=== PATIENT | male | born 1960 | race African-American/Black ===

== ENCOUNTER 2021-12-16 00:35 | Day surgery (SDC) | payer OTHER, SELFPAY ==
[2021-12-04 11:13] VITALS: BMI 26.7
[2021-12-16 06:43] VITALS: BP 131/79; PULSE 52; RESP 18; TEMP 37.1; O2SAT 100
[2021-12-16] MEDS: LACTATED RINGERS 1,000 ML 150 ML IV CONT (06:47)
--- NOTE | 2021-12-16 06:59 | WPDANESEPPF ---
Anes - Initial Pre Proc Eval Procedure: Operation Date: 12/16/21 08:00 Proposed Procedures p Screening Colonoscopy - Thomas Rosales MD Date/Time: 12/16/21 06:59 Surgeon: Thomas Rosales MD Pre Op Diagnosis: neoplasm screening Patient Data Age: 61 Gender: M Height: 1.7 m Weight: 78 kg Last Vital Signs Temp 37.1 C 12/16/21 06:43 Pulse 52 L 12/16/21 06:43 Resp 18 12/16/21 06:43 BP 131/79 12/16/21 06:43 Pulse Ox 100 12/16/21 06:43 Allergies Allergy/AdvReac Type Severity Reaction Status Date / Time No Known Allergies Allergy Verified 12/16/21 06:41 Home Medications Medication Instructions Recorded Confirmed Type No Home Medications 06/04/21 12/16/21 History Patient hx anesthesia problems: none Family hx anesthesia problems: none Results Review: All pre-operative results and documents have been reviewed as part of the pre-operative evaluation. [facility] Surgical History Surgical History (Updated 09/13/21 @ 09:34 by Xuan Cintron, CINDY) History of hernia repair as a child Family History Family History (Updated 09/13/21 @ 09:35 by Xuan Cintron, CINDY) Mother Hypertension Social History Social History Smoking status: Never smoker Second hand tobacco smoke exposure: No Alcohol intake: never Substance use: never Substance use type: does not use Living arrangements: with family Gender identity (if verbalized by the patient): Male Sexual Orientation (if Verbalized by the Patient): Straight or Heterosexual Spiritual care concerns: No Anes - Eval Final PreProcedure Day of Procedure 12/16/21 06:59 Patient weight: overweight Heart: regular rate and rhythm Lungs: clear to auscultation and normal air movement Airway: Mallampati scale class II Neurological: alert and oriented Last oral intake: >/= 8 hours ASA classification: I Emergent: no Anesthetic plan: proceed Anesthesia type and monitoring: general GIVS and standard monitoring Results Review: All pre-operative results and documents have been reviewed as part of the pre-operative evaluation. Informed Consent: The patient's anesthetic plan and its attendant risks and benefits were discussed with the patient/family/POA. Questions were solicited and answers provided to the satisfaction of the patient/family/POA.
--- NOTE | 2021-12-16 07:56 | PM.HPGS ---
History of Present Illness History of Present Illness Consent: Risks, benefits, and alternatives have been discussed and questions answered. Patient agrees to proceed with procedure. Chief complaint: neoplasm screening Narrative: Guanaco Austin is a 61 year old male here for screening colonoscopy, last one 12 years ago Review of Systems Constitutional: Constitutional: Denies headache(s) and Denies weakness Eyes: Eyes: Denies blurry vision ENT: Reports Normal hearing present, Denies headache(s) and Denies neck pain Cardiovascular: Cardiovascular: Denies chest pain and Denies dyspnea Respiratory: Respiratory: Denies dyspnea Gastrointestinal: Gastrointestinal: Reports no additional gastrointestinal complaints Genitourinary: Genitourinary: Denies dysuria Musculoskeletal: Musculoskeletal: Denies neck pain Integumentary/Breasts: Skin/Breast: Denies dry skin Neurologic: Reports Normal hearing present, Denies headache(s) and Denies weakness Psychiatric: Psychiatric: Denies anxiety Endocrine: Endocrine: Denies change in body appearance Hematologic/Lymphatic: Hematologic/Lymphatic: Denies easy bleeding Allergic/Immunologic: Allergic/Immunologic: Denies urticaria PMFSH Surgical History Surgical History (Updated 09/13/21 @ 09:34 by Xuan Cintron, CINDY) History of hernia repair as a child Family History Family History (Updated 09/13/21 @ 09:35 by Xuan Cintron, KAPILC) Mother Hypertension Social History Social History Smoking status: Never smoker Second hand tobacco smoke exposure: No Alcohol intake: never Substance use: never Substance use type: does not use Living arrangements: with family Gender identity (if verbalized by the patient): Male Sexual Orientation (if Verbalized by the Patient): Straight or Heterosexual Spiritual care concerns: No Meds Home Medications and Allergies Home Medications Medication Instructions Recorded Confirmed Type No Home Medications 06/04/21 12/16/21 History Allergies Allergy/AdvReac Type Severity Reaction Status Date / Time No Known Allergies Allergy Verified 12/16/21 06:41 Vital Signs Vital Signs - 24 hr 12/16/21 06:43 Temperature 98.7 F Pulse Rate 52 L Respiratory Rate 18 Blood Pressure 131/79 Pulse Oximetry 100 Exam Const: General: comfortable and no acute distress HENMT: General nose exam: Normal nares present Eyes: General: appearance normal, both eyes and all related structures Neck: Neck: no JVD Resp: Auscultation: clear to auscultation bilaterally Cardio: Rate: regular rate Rhythm: regular rhythm GI: Inspection: non-distended GI Palp: Yes Soft to palpation Skin: General skin exam: normal color Neuro: General: gait normal Speech: normal speech Extrem: General: normal to inspection Psych: Mental Status: mental status grossly normal Assessment and Plan Assessment and plan (1) Colon cancer screening: Code(s): Z12.11 - Encounter for screening for malignant neoplasm of colon Status: Acute Assessment and Plan: colonoscopy
[2021-12-16 08:15] VITALS: BP 111/71; PULSE 64; RESP 19; O2SAT 100
[2021-12-16 08:25] VITALS: BP 107/66; PULSE 62; RESP 20; O2SAT 100
[2021-12-16 08:35] VITALS: BP 107/66; PULSE 62; RESP 14; O2SAT 100
== END 2021-12-16 08:49 | disposition home or self-care (01) ==
PROVIDERS: PCP Family Medicine; Visit Provider Internal Medicine Gastroenterology
PROC: 0DJD8ZZ Inspection of Lower Intestinal Tract, Via Natural or Artificial Opening Endoscopic (ICD-10-PCS; CPT 45378; principal; 2021-12-16 08:00)
DX: Z12.11 Encounter for screening for malignant neoplasm of colon (principal); K64.8 Other hemorrhoids; D12.0 Benign neoplasm of cecum; D12.4 Benign neoplasm of descending colon
CPT/HCPCS: 45385; 88305; J2704; J7120